=== PATIENT | female | born 1965 | race Two or more races ===

== ENCOUNTER 2020-05-30 14:17 | Emergency (ER) | payer MEDICARE, OTHER ==
[~2020-05-30] VITALS: Ht 157.5 cm; Wt 80.0 kg
[2020-05-30] MEDS ORDERED: IBUPROFEN 600MG TABLET PO STA (15:39)
[2020-05-30 16:54] VITALS: BP 113/74
== END 2020-05-30 16:55 | disposition home or self-care (01) ==
LOC: ER 14:39
DX: S92.352A Displaced fracture of fifth metatarsal bone, left foot, initial encounter for closed fracture (principal); Z88.8 Allergy status to other drugs, medicaments and biological substances; X58.XXXA Exposure to other specified factors, initial encounter; Y93.89 Activity, other specified; Y92.89 Other specified places as the place of occurrence of the external cause; Y99.8 Other external cause status
CPT/HCPCS: 29515; 73630; 82542; 99283